=== PATIENT | female | born 1990 | race Caucasian/White ===

== ENCOUNTER 2017-03-28 10:25 | Outpatient (CLI) | payer OTHER | END 2017-03-28 10:26 | disposition home or self-care (01) | LOC: BICULT 10:25 | PROVIDERS: ATTEND Obstetrics & Gynecology | DX: Z34.82 Encounter for supervision of other normal pregnancy, second trimester (principal); R10.11 Right upper quadrant pain; K76.89 Other specified diseases of liver; N28.1 Cyst of kidney, acquired; K82.4 Cholesterolosis of gallbladder; Z3A.28 28 weeks gestation of pregnancy | CPT/HCPCS: 76705 ==

== ENCOUNTER 2017-06-13 21:00 | Inpatient (IN) | payer OTHER ==
--- NOTE | 2017-06-13 16:28 | PDOC.LDHP ---
Labor and Delivery H&P Chief complaint: scheduled induction HPI: 27 yo @ 39w5d by 8 week CRL who presents for EIOL. Pt anetpartum course complicated by h/o PTD, on weekly 17 OHP and maternal h/o polycystic kidneys ( proteinuria noted). Current gestational age (weeks): 39 Due date: 06/15/17 Dating criteria: first trimester ultrasound Grav: 2 Para: 1 OB History Details: @ 36 weeks in 2006 Current complications: none Abnormal US findings: No Past Medical History: Polycyctic kidneys Current medications: pre-ciera vitamins Previous surgical history: none Allergies/Adverse Reactions: Allergies Allergy/AdvReac Type Severity Reaction Status Date / Time No Known Allergies Allergy Unverified 06/13/17 21:33 Social history: none - Physical Exam Vital signs reviewed and normal: yes General: NAD Heart: RRR Lungs: nonlabored breathing Extremeties: no edema FHT: category 1 (120s, mod leonard, +accels, no decels - recent tracing discontinuous due to maternal positioning due to discomfort.) - Vaginal Exam cm dilated: 5 (cephalic) Effacement: 50% Station: -2 - OB Labs Blood type: A RH: positive Antibody Screen: negative HIV: negative RPR: negative HEPSAg: negative 1 hour GCT: negative GBS: positive Urine drug screen: not done Rubella: immune - Assessment 39w5d IUP Elective IOL Polycystic kidneys GBS+ - Plan Plan: admit to L&D, cervical ripening, GBS antibiotic prophylaxis, informed consent obtained, anesthesia consult for pain management -: Plan to AROM after pt comfortable with epidural.
[2017-06-13 21:40] VITALS: BMI 35.9
[2017-06-13] MEDS ORDERED: Acetaminophen 500 MG TAB PO PRN (21:40)
[2017-06-13] MEDS ORDERED: Ondansetron HCl/PF 4 MG/2 ML Vial IVP PRN (21:40)
[2017-06-13] MEDS ORDERED: Lidocaine 1% (PF) 30 ML VIAL SC PRN (21:40)
[2017-06-13] MEDS ORDERED: Dinoprostone 10 MG Suppository VAG SCH (21:40)
[2017-06-13] MEDS ORDERED: Misoprostol 200 MCG TAB PR PRN (21:40)
[2017-06-13] MEDS ORDERED: HYDROcodone/Acetaminophen 5/325 mg Tablet PO PRN (21:40)
[2017-06-13] MEDS ORDERED: Penicillin G Potassium 5 MILL.UNITS in Sodium Chloride 0.9% 100 ML IVPB SCH (21:40)
[2017-06-13] MEDS ORDERED: Carboprost 250 MCG/ML AMP IM PRN (21:40)
[2017-06-13] MEDS ORDERED: Methylergonovine 0.2 MG/ML VIAL IM PRN (21:40)
[2017-06-13] MEDS ORDERED: Diphenoxylate HCl/Atropine Tablet PO PRN (21:40)
[2017-06-13] MEDS ORDERED: Promethazine HCl 25 MG/ML VIAL IM PRN (21:40)
[2017-06-13] MEDS ORDERED: LR / Pitocin 40 units/1000 ml 1,000 ML IV PRN (21:40)
[2017-06-13] MEDS ORDERED: Ibuprofen 800 MG TAB PO PRN (21:40)
[2017-06-13 22:25] LABS: Hemoglobin 11.6 g/dL (12.0-16.0); Mean Corpuscular HGB CONC 33.4 g/dL (32.0-36.0); Mean Corpuscular Hemoglobin 32.3 pg (27.0-31.0); Mean Corpuscular Volume 96.6 fl (81.0-99.0); Mean Platelet Volume 7.8 fL (7.4-10.4); Platelet Count 232 thou/uL (130-400); RBC Distribution Width 12.1 % (11.5-14.5)
[2017-06-13 23:05] LABS: Syphilis Antibody Nonreactive (Nonreactive); Syphilis Antibody Index 0.03 S/CO (<1.00 Non-Reactive)
[2017-06-13] MEDS: Lactated Ringer's 1,000 ML IV SCH (23:42)
[2017-06-13 23:44] LABS: HBSAg Index 0.16 S/CO (0-0.99); HIV (1/2) Antibody/Antigen Non-Reactive (NonReactive); HIV 1/2 INDEX 0.13 S/CO (<1.00); Hep B Surf Ag Non-Reactive S/CO (NonReactive)
[2017-06-14] MEDS ORDERED: Penicillin G 2.5 MILL.units 50 ML ONE ×3 (03:51→12:32)
[2017-06-14] MEDS: Penicillin G 2.5 MILL.units 2.5 MILL.UNITS in Premix Bag 1 BAG IVPB SCH ×3 (03:53→17:17)
[2017-06-14] MEDS ORDERED: LR 500 ML/Oxytocin 10 units 500 ML IV SCH (06:00)
[2017-06-14] MEDS ORDERED: DISCONTINUE ALL PREVIOUS NARCOTICS FS SCH (08:30)
[2017-06-14] MEDS ORDERED: Bupivacaine 0.5% 20 ML, fentaNYL Citrate/PF 400 MCG in Sodium Chloride 0.9% 72 ML EPIDURAL SCH ×2 (08:30→10:00)
[2017-06-14] MEDS: Lactated Ringer's 1,000 ML IV SCH ×2 (09:01→17:17)
[2017-06-14] MEDS ORDERED: Promethazine HCl 25 MG/ML VIAL IM PRN (09:28)
[2017-06-14] MEDS ORDERED: Lactated Ringer's 500 ML IV PRN (09:28)
[2017-06-14] MEDS ORDERED: diphenhydrAMINE 50 MG/ML VIAL IVP PRN (09:28)
[2017-06-14] MEDS ORDERED: Eucerin (Mineral Oil/Petrolatum,White) 30 gm Jar TOP PRN (09:28)
[2017-06-14] MEDS ORDERED: ePHEDrine/0.9% NaCl/PF SYRINGE 50 mg/10 ml SLOW IVP PRN (09:28)
[2017-06-14] MEDS ORDERED: Ondansetron HCl/PF 4 MG/2 ML Vial IVP PRN (09:28)
[2017-06-14] MEDS ORDERED: Naloxone HCl 0.4 mg/ml Vial IVP PRN ×2 (09:28)
[2017-06-14] MEDS ORDERED: Acetaminophen 325 MG TAB PO PRN (09:28)
[2017-06-14] MEDS ORDERED: Fentanyl 4mcg/Marcaine 0.1% Cassette 100 ML EPIDURAL SCH (09:30)
[2017-06-14] MEDS ORDERED: Communication Order-Pharmacy FS SCH (09:30)
--- NOTE | 2017-06-14 09:48 | PDOC.EVN ---
Event Note - Event Note Event Note: AROM NOTE: Asked by Dr Dennis to perform AROM. AROM performed at 0945 with exam in this multigravida. Moderate variability noted pre and post AROM. AROM discussed with her and her before performance. Thin mec noted, this was explained and discussed with the patient and . Consider NICU at delivery per protocol. No internal placed as CX changing. Dr Greene aware of exam.
[2017-06-14] MEDS ORDERED: Bupivacaine 0.25% HCL 30 ML VIAL ONE (11:11)
--- NOTE | 2017-06-14 13:08 | PDOC.OPDEL ---
OB Operative/Delivery Note Delivery Dr/Surgeon: Fifi Greene DO Pre-Delivery Diagnosis: elective induction Procedure/Post Delivery Dx: spontaneous vaginal delivery Weeks gestation: 39 Anesthesia: epidural - Findings A Sex: male - 1 min: 8 - 5 min: 9 - Additional Findings/Plan Placenta delivered: spontaneous Repaired Obstetrical Laceration: 1st degree Estimated blood loss: 200 cc Compilations/Other Findings: Cephalic presentation, MCKAYLA position. Nuchal x1 Thin meconium AF Post delivery plan: routine recovery
[2017-06-14] MEDS ORDERED: Lanolin Ointment 7 GM TUBE TOP PRN (18:30)
[2017-06-14] MEDS: Docusate Calcium (SURFAK) 240 MG CAP PO SCH (21:41)
[2017-06-15] MEDS ORDERED: HYDROcodone/Acetaminophen 5/325 mg Tablet PO PRN ×2 (03:22)
--- NOTE | 2017-06-15 04:14 | PDOC.PP ---
Post Progress Note Post Day #: 1 Subjective: Doing well, ok with going home this PM PO intake tolerated: yes Flatus: yes Ambulation: yes Vital Signs (12 hours) Temp Pulse Resp BP 06/15/17 00:00 98.0 F 96 18 122/71 06/14/17 19:45 98.1 F 83 18 132/77 06/14/17 16:58 97.9 F 95 18 06/14/17 16:50 98.5 F 78 18 133/85 Weight Weight 190 lb - Physical Examination General: NAD Cardiovascular: no m/r/g Abdominal: lochia, appropriately TTP Extremities: negative homans (B) Neurological: no gross focal deficits Psychiatric: A&Ox3, normal affect Result Diagrams: 06/13/17 22:00 Additional Labs: Post Labs Blood Type A POSITIVE 06/13/17 22:00 Hep Bs Antigen Non-Reactive S/CO (NonReactive) 06/13/17 22:00 (1) Vaginal delivery Code(s): O80 - ENCOUNTER FOR FULL-TERM UNCOMPLICATED DELIVERY Status: Acute (2) state Code(s): Z39.2 - ENCOUNTER FOR ROUTINE FOLLOW-UP Status: Acute - Assessment/Plan patient s/p on 06/14/17 around noon. Desires dsch home. No acute issues. Home with motrin prn. Office for in 4-6 weeks
--- NOTE | 2017-06-15 04:16 | PDOC.EVN ---
Event Note - Event Note Event Note: DISCHARGE NOTE Admit: 06/13/17 Discharge: 06/15/17 Procedures: Induction of labor monitoring vaginal Delivery Patient seen on day of discharge. Home with motrin prn. Please see OB Discharge Summary in record. Follow up 4-6 weeks .
[2017-06-15] MEDS ORDERED: Benzocaine/Menthol 20-0.5% 60 ML CAN TOP PRN (08:50)
[2017-06-15] MEDS: Docusate Calcium (SURFAK) 240 MG CAP PO SCH (08:57)
[2017-06-15] MEDS ORDERED: Prenatal Vitamin 1 TAB PO SCH (09:00)
[2017-06-15 13:21] VITALS: BP 118/84; TEMP 99.1
== END 2017-06-15 19:31 | disposition home or self-care (01) | DRG 775 ==
LOC: L&D 21:01 → 3SW 06-14 17:03
PROVIDERS: ADMIT Obstetrics & Gynecology; ATTEND Obstetrics & Gynecology
PROC: 3E0P7VZ Introduction of Hormone into Female Reproductive, Via Natural or Artificial Opening (ICD-10-PCS; 2017-06-13)
PROC: 10E0XZZ Delivery of Products of Conception, External Approach (ICD-10-PCS; principal; 2017-06-14)
PROC: 10907ZC Drainage of Amniotic Fluid, Therapeutic from Products of Conception, Via Natural or Artificial Opening (ICD-10-PCS; 2017-06-14)
PROC: 0HQ9XZZ Repair Perineum Skin, External Approach (ICD-10-PCS; 2017-06-14)
DX: O77.0 Labor and delivery complicated by meconium in amniotic fluid (principal); O70.0 First degree perineal laceration during delivery; Z3A.39 39 weeks gestation of pregnancy; Z37.0 Single live birth
CPT/HCPCS: 51702; 85027; 86780; 86850; 86900; 86901; 87340; 87389; A4216; J2001; J2540; J3010; J3490; J7050; S0020